=== PATIENT | male | born 1945 | race Caucasian/White ===

== ENCOUNTER 2016-12-26 09:40 | Outpatient (CLI) | payer OTHER, MEDICAID ==
[~2016-12-26 09:40] MED LIST: ALPR0.2583 PO; CARI350T27 PO; CEPH-568 PO; HYDR-1189 PO; HYDR-4100 PO; LOSA50TA3 PO; MET10 PO; MULT-514 PO; OMEP20CA10 PO
[2016-12-26 10:37] LABS: BASOPHILS % (AUTO) 0.7 % (0.0-2.0); BILIRUBIN,URINE NEGATIVE (NEGATIVE); BLOOD, URINE 2+ (NEGATIVE); CLARITY/URINE CLEAR (CLEAR); COLOR,URINE YELLOW (YELLOW); EOSINOPHILS # (AUTO) 0.2 K/uL (0.0-0.4); EOSINOPHILS % (AUTO) 3.4 % (0.0-4.0); GLUCOSE,URINE NEGATIVE (NEGATIVE); HEMATOCRIT 37.7 % (36-54); HEMOGLOBIN 12.8 g/dL (14.0-18.0); KETONES,URINE NEGATIVE (NEGATIVE); LEUKOCYTE ESTERASE ,URINE 1+ (NEGATIVE); LYMPHOCYTES # (AUTO) 1.5 K/uL (1.0-5.5); LYMPHOCYTES % (AUTO) 26.5 % (20.5-51.5); MEAN CORPUSCULAR HEMOGLOBIN 32 pg (27-31); MEAN CORPUSCULAR HGB CONC 34 % (32-36); MEAN CORPUSCULAR VOLUME 94 fL (79.0-98.0); MONOCYTES # (AUTO) 0.4 K/uL (0.0-1.0); MONOCYTES % (AUTO) 6.3 % (1.7-9.3); NEUTROPHILS # (AUTO) 3.6 K/uL (1.8-7.7); NEUTROPHILS % (AUTO) 63.1 % (40.0-70.0); NITRITE, URINE POSITIVE (NEGATIVE); PLATELET COUNT (AUTO) 333 K/uL (130-430); PROTEIN URINE NEGATIVE (NEGATIVE); RED BLOOD CELL COUNT(AUTO) 4.03 MIL/uL (4.2-6.2); RED CELL DISTRIBUTION WIDTH 13.3 % (9.0-15.0); UROBILINOGEN,URINE 0.2 (0.2-1.0); WHITE BLOOD COUNT (AUTO) 5.7 K/uL (4.8-10.8)
[2016-12-26 10:45] LABS: BACTERIA,URINE FEW /HPF (None Seen); YEAST,URINE None Seen /HPF (None Seen)
[2016-12-26 10:48] LABS: PROTHROMBIN TIME 10.7 SECS (9.5-12.5)
[2016-12-26 10:51] LABS: ALBUMIN 3.8 g/dL (3.4-4.8); CALCIUM 9.5 mg/dL (8.4-11.0); CREATININE 1.55 mg/dL (0.55-1.30); POTASSIUM 4.8 mmol/L (3.5-5.1); TOTAL BILIRUBIN 0.3 mg/dL (0.0-1.0); TOTAL PROTEIN, SERUM 8.3 g/dL (6.4-8.3)
== END 2016-12-26 19:36 | disposition home or self-care (01) ==
LOC: SRD 09:40
PROVIDERS: ATTEND Family Medicine
DX: Z01.818 Encounter for other preprocedural examination (principal); R05 Cough; M47.899 Other spondylosis, site unspecified; I70.0 Atherosclerosis of aorta
CPT/HCPCS: 36415; 71020-TC; 80053; 81000-TC; 85025; 85610-TC; 85730-TC; 87086; 87186-TC

== ENCOUNTER 2017-01-06 20:54 | Inpatient (IN) | payer OTHER ==
[~2017-01-06] VITALS: Ht 172.7 cm; Wt 76.2 kg
--- NOTE | 2017-01-06 20:54 | NUR ---
Patient to ER bed 2 to gown for evaluation. Side rails up. Report given to RADHIKA LOPEZ.
[2017-01-06 20:55] VITALS: BP_SYST 159
--- NOTE | 2017-01-06 20:56 | NUR ---
Patient alert and oriented x 4. Brought in via BLS with a complaint of severe, sharp mid lower abdominal pain which worsened today. Patient had bladder reconstruction last friday. Patient denies n/v/d. No fever, no acute distress or SOB at this time. O2 sat 94%. Patient has a urostomy bag on his right lower abdomen and 2 ROYCE drains on the left side of the abdomen.
[2017-01-06 21:15] LABS: BILIRUBIN,URINE NEGATIVE (NEGATIVE); BLOOD, URINE 2+ (NEGATIVE); CLARITY/URINE CLEAR (CLEAR); COLOR,URINE YELLOW (YELLOW); GLUCOSE,URINE NEGATIVE (NEGATIVE); KETONES,URINE NEGATIVE (NEGATIVE); LEUKOCYTE ESTERASE ,URINE 2+ (NEGATIVE); NITRITE, URINE NEGATIVE (NEGATIVE); PROTEIN URINE 1+ (NEGATIVE); UROBILINOGEN,URINE 0.2 (0.2-1.0)
[2017-01-06] MEDS ORDERED: MORPHINE 4 MG/ML INJ. SYRINGE IVP ONE ×2 (21:15→21:45)
[2017-01-06 21:22] LABS: BASOPHILS % (AUTO) 0.2 % (0.0-2.0); EOSINOPHILS # (AUTO) 0.1 K/uL (0.0-0.4); EOSINOPHILS % (AUTO) 0.7 % (0.0-4.0); HEMOGLOBIN 9.5 g/dL (14.0-18.0); LYMPHOCYTES # (AUTO) 0.8 K/uL (1.0-5.5); LYMPHOCYTES % (AUTO) 9.4 % (20.5-51.5); MEAN CORPUSCULAR HEMOGLOBIN 32 pg (27-31); MEAN CORPUSCULAR HGB CONC 34 % (32-36); MEAN CORPUSCULAR VOLUME 94 fL (79.0-98.0); MONOCYTES # (AUTO) 0.5 K/uL (0.0-1.0); MONOCYTES % (AUTO) 6.5 % (1.7-9.3); NEUTROPHILS # (AUTO) 6.8 K/uL (1.8-7.7); PLATELET COUNT (AUTO) 300 K/uL (130-430); RED BLOOD CELL COUNT(AUTO) 2.98 MIL/uL (4.2-6.2); RED CELL DISTRIBUTION WIDTH 13.7 % (9.0-15.0); WHITE BLOOD COUNT (AUTO) 8.2 K/uL (4.8-10.8)
[2017-01-06 21:24] LABS: BACTERIA,URINE FEW /HPF (None Seen)
[2017-01-06 21:25] LABS: MUCUS,URINE None Seen /LPF (None Seen)
[2017-01-06 21:33] LABS: CALCIUM 8.7 mg/dL (8.4-11.0); CREATININE 1.59 mg/dL (0.55-1.30); POTASSIUM 4.1 mmol/L (3.5-5.1)
[2017-01-06 21:36] LABS: INR 1.1 (0.80-1.20)
[2017-01-06 21:37] LABS: ALBUMIN 2.9 g/dL (3.4-4.8); TOTAL BILIRUBIN 0.3 mg/dL (0.0-1.0); TOTAL PROTEIN, SERUM 6.7 g/dL (6.4-8.3)
[2017-01-06 22:10] LABS: NEUTROPHILS % (AUTO) 83.2 % (40.0-70.0)
[2017-01-06] MEDS ORDERED: cefTRIAXone 1 GM IVPB PREMIX 50 ML IV ONE (22:15)
[2017-01-06] MEDS ORDERED: HYDROmorphone 1 MG INJ. 1 MG/ML AMPUL IVP ONE (22:45)
[2017-01-06] MEDS ORDERED: DOCU-144 PO (23:07)
[2017-01-06] MEDS ORDERED: OXYC5TAB84 PO (23:07)
[2017-01-06] MEDS ORDERED: NOR10 PO (23:08)
[2017-01-06] MEDS ORDERED: DOXY100T2 PO (23:09)
[2017-01-06] MEDS ORDERED: ESOM40CA PO (23:12)
[2017-01-06] MEDS ORDERED: ONDANSETRON HCL 4 MG/2 ML VIAL IVP PRN (23:15)
[2017-01-06] MEDS ORDERED: MORPHINE 2 MG/ML INJ. SYRINGE IVP PRN (23:15)
[2017-01-06] MEDS ORDERED: CEPH-568 PO (23:16)
--- NOTE | 2017-01-06 23:17 | NUR ---
Medication reconciliation completed with information provided in his record from home. Any prior medication reconciliation on file was reviewed and corrected.
--- NOTE | 2017-01-06 23:28 | NUR ---
Patient will be admitted under the care of Dr. Joel. Admitted to telemetry unit room 119B. Summary report printed. Report will be given at bedside. Patient was transported by 1 RN and 1 MT via gurney without any incident. No acute distress or sOB noted upon transfer. Patient was hooked up to a tele monitor.
--- NOTE | 2017-01-06 23:38 | NUR ---
CONSULTATION PAGED REASON FOR CONSULTATION:SMALL BOWEL OBSTRUCTION WAS CONSULT CALLED?Y PERSON WHO WAS NOTIFIED:DELORIS CONSULTING PHYSICIAN:JEN TAPIA COUNTERSINKER SPECIALTY:SURGEON COUNTERSINKER PHONE NUMBER:[phone]
--- NOTE | 2017-01-06 23:40 | NUR ---
ADMIT NOTE Received pt from ER to the floor with a diagnosis of SBO and UTI. Admission process initiated. patient oriented to pain management, safety and call light-teach back done.
--- NOTE | 2017-01-06 23:40 | NUR ---
initial nursing notes: Patient is awake. Patient has an ileal conduit connected to a drainage bag. Patient has steri-strips on his abdomen, open to air. Patient has a left and a right abdominal ROYCE drain. Patient has a left hand IV access.
[2017-01-06 23:56] VITALS: BP_SYST 158
--- NOTE | 2017-01-06 23:56 | NUR ---
PAGED PAGED KWAN VALDEZ AT [phone] SPOKE WITH DERIK.
[2017-01-07] MEDS: D5/0.45 NS 1,000 ML IV SCH ×2 (00:06→18:04)
[2017-01-07] MEDS: MORPHINE 4 MG/ML INJ. SYRINGE IVP PRN ×5 (00:23→17:57)
[2017-01-07] MEDS ORDERED: metroNIDAZOLE 500 mg/NS 200 ML IV ONE (00:30)
--- NOTE | 2017-01-07 00:41 | NUR ---
PAGED PAGED KWAN VALDEZ AT [phone] SPOKE WITH ROBBI.
--- NOTE | 2017-01-07 01:40 | NUR ---
nursing rounds: Patient received IV pain medication for abdominal pain. Pain medication was effective.
--- NOTE | 2017-01-07 02:50 | NUR ---
pt complain of gas pain. page dr. gonzalez to get order. waiting for call back.
--- NOTE | 2017-01-07 02:51 | NUR ---
dr. gonzalez call back give order to ELISSA.
[2017-01-07] MEDS ORDERED: MORPHINE 4 MG/ML INJ. SYRINGE IVP PRN (03:00)
--- NOTE | 2017-01-07 03:40 | NUR ---
nursing rounds: Patient received another dose of IV pain medication for abdominal pain. Pain medication was effective.
[2017-01-07 03:57] VITALS: BP_SYST 155
[2017-01-07] MEDS: metroNIDAZOLE 500 mg/NS 100 ML IV SCH ×2 (05:27→13:49)
--- NOTE | 2017-01-07 05:40 | NUR ---
nursing rounds: Patient calmly resting in bed. Call light within patient's reach.
[2017-01-07 06:06] LABS: CALCIUM 8.9 mg/dL (8.4-11.0); CREATININE 1.48 mg/dL (0.55-1.30); POTASSIUM 4.1 mmol/L (3.5-5.1); TOTAL BILIRUBIN 0.3 mg/dL (0.0-1.0); TOTAL PROTEIN, SERUM 6.9 g/dL (6.4-8.3)
[2017-01-07 06:12] LABS: HEMOGLOBIN 9.9 g/dL (14.0-18.0); WHITE BLOOD COUNT (AUTO) 10.1 K/uL (4.8-10.8)
[2017-01-07 06:22] LABS: HEMATOCRIT 29.3 % (36-54); MEAN CORPUSCULAR HEMOGLOBIN 31 pg (27-31); MEAN CORPUSCULAR HGB CONC 34 % (32-36); MEAN CORPUSCULAR VOLUME 93 fL (79.0-98.0); PLATELET COUNT (AUTO) 333 K/uL (130-430); RED BLOOD CELL COUNT(AUTO) 3.15 MIL/uL (4.2-6.2); RED CELL DISTRIBUTION WIDTH 13.4 % (9.0-15.0)
[2017-01-07 07:17] LABS: BAND % (MANUAL) 2 % (0-6); BASOPHILS % (MANUAL) 0 % (0-2); EOSINOPHILS % (MANUAL) 1 % (0-7); LYMPHOCYTES % (MANUAL) 6 % (20-46); MONOCYTES % (MANUAL) 2 % (0-11)
--- NOTE | 2017-01-07 07:49 | NUR ---
closing nursing notes: Patient is awake, alert and oriented X 4. Patient is in no acute respiratory distress. No episodes of fall and no injuries throughout the shift engineer. Provided nursing report to incoming morning shift nurse, Linh Monsivais RN, at patient's bedside.
[2017-01-07] MEDS: SIMETHICONE 80 MG TAB.CHEW PO PRN ×2 (08:13→20:09)
[2017-01-07 08:14] VITALS: BP_SYST 149
--- NOTE | 2017-01-07 08:14 | NUR ---
Initial notes: pt on bed awake, alert and oriented. stable. i.v. access in placed. discussed plan of care. safety measures in placed. call light within reach. report received at bedside.
--- NOTE | 2017-01-07 10:34 | NUR ---
rounds: pt sleeping. no distress noted.
[2017-01-07] MEDS ORDERED: CEPHALEXIN 500 MG CAPSULE PO SCH (11:30)
[2017-01-07] MEDS ORDERED: DOCUSATE SODIUM 100 MG CAPSULE PO PRN (11:30)
[2017-01-07] MEDS ORDERED: oxyCODONE HCL 5 MG TABLET PO PRN (11:30)
[2017-01-07 11:36] VITALS: BP_SYST 151
[2017-01-07] MEDS ORDERED: ONDANSETRON HCL 4 MG/2 ML VIAL IVP PRN (11:56)
[2017-01-07] MEDS ORDERED: PANTOPRAZOLE SODIUM 40 MG TAB PO SCH (12:00)
[2017-01-07 12:02] VITALS: BP_SYST 166
[2017-01-07] MEDS ORDERED: amLODIPine BESYLATE 10 MG TABLET PO ONE (12:15)
[2017-01-07] MEDS ORDERED: METHADONE HCL 10 MG TABLET PO ONE (12:15)
[2017-01-07] MEDS ORDERED: PANTOPRAZOLE SODIUM 40 MG TAB PO ONE (12:15)
--- NOTE | 2017-01-07 12:20 | NUR ---
DC PLANNING Order to transfer back to [facility], pt was dc'd yest. Spoke w Dr Joel states transfer dx Bowel Obstruction, needs Med/Surg bed via BLS ambulance. Pt had Ilial Conduit Reconstruction @ [facility]. Spoke w pt @ bedside, agreeable w clari, @ [facility] is José Miguel Campbell. Called & spoke rob Raya @ [facility] transfer center, ph [phone], states need to have Md to first & get acceptance from Dr Darling. Transferred call to Dr Darling's office & spoke w Siria in Urology gave her Dr Joel's cell #. Will have Md to then can call transfer center to work on transfer once accepted. Called & spoke rob Raya @ transfer center states to go ahead & fax pt info. Faxed pt info as requested fax [phone]. Addendum: 01/07/17 at 1232 by Graciela MYERS Ordered Radiology CD. Placed transportation packet in nurses station. Addendum: 01/07/17 at 1313 by Tianna Elizabeth RN Received call from Kun, charge nurse, that Dr Joel called & stated to transfer pt that did Md to Md & accepted. Called & spoke rob Raya @ [facility] transfer center, states that has not called yet saying he accepted that she paged Dr Darling, waiting to hear back from him. After he returns call will get a bed for pt & will call me. Has my direct extension & direct nsg station#. Updated pt's, Linh calderón. Addendum: 01/07/17 at 1600 by Graciela Link DP Patient assigned to room 6326 Urology Floor [address] [place] RADHIKA to report [phone]. Called [facility] [phone] spoke with Astrid LEAVITT transport sampler pickup soonest available 6pm to [facility] at [address] [address]. RADHIKA Melton made aware. CM will inform patient. Addendum: 01/07/17 at 1612 by Tianna Elizabeth RN Received call from Tisha @ [facility], Bed placement/transfer center ph [phone], pt accepted under Dr Darling to Urology floor 6W bed 6326, # for report [phone], can transfer anytime. Informed pt's nurse Emmy, states anytime for transfer ok. Informed malka Owens medical planner. Ambulance set up for 6PM. Informed pt, agreeable w transfer @ [facility] @ 6pm. Updated Emmy.
--- NOTE | 2017-01-07 12:35 | NUR ---
rounds: pt on bed in pain. due pain meds given. family at bedside.
--- NOTE | 2017-01-07 14:16 | NUR ---
rounds: pt on bed resting .no distress noted.
--- NOTE | 2017-01-07 15:11 | NUR ---
rounds: pt on bed. resting. stable.
[2017-01-07 15:23] VITALS: BP_SYST 135
[2017-01-07 15:38] VITALS: BP_SYST 135
--- NOTE | 2017-01-07 17:55 | NUR ---
CONSULTATION CANCELLED REASON FOR CONSULT: SMALL BOWEL OBSTRUCTION PERSON WHO WAS NOTIFIED: GUERRERO CONSULTING : SUNG REASON FOR CANCELING: PT IS DISCHARGING TO [facility].
--- NOTE | 2017-01-07 19:40 | NUR ---
ROUNDS PATIENT IN BED, AWAKE, ALERT, ORIENTED, NO PAIN AND DISCOMFORT AT THIS TIME. PATIENT READY FOR TRANSFER TO [facility], [place] ORDERED, JUST WAITING FOR AMBULANCE FOR TRANSPORT.TRANSITION OF CARE INSTRUCTIONS AND PACKET ALREADY DONE BY A.M. NURSE. ALL NEEDS ATTENDED TO. CALL LIGHT PLACED WITHIN REACH.
--- NOTE | 2017-01-07 19:49 | NUR ---
closing notes: pt on bed resting. stable. needs attended. safety measures in placed. waiting for ambulance to transfer at [facility]. report given to RADHIKA Chance of [facility] at 16:15. Pass to night auditor RNMisty.
--- NOTE | 2017-01-07 20:20 | NUR ---
NOTES PATIENT TRANSFERRED TO [facility] ORDERED VIA AMBULANCE WITH STABLE VITAL SIGNS. TRANSITION OF CARE PACKET DONE. ALL NEEDS MET AND ATTENDED TO.
[2017-01-07] MEDS ORDERED: DOXYCYCLINE HYCLATE 100 MG CAPSULE PO SCH (21:00)
[2017-01-07] MEDS ORDERED: amLODIPine BESYLATE 10 MG TABLET PO SCH (21:00)
[2017-01-07] MEDS ORDERED: cefTRIAXone 1 GM IVPB PREMIX 50 ML IV SCH (21:00)
[2017-01-08] MEDS ORDERED: METHADONE HCL 10 MG TABLET PO SCH (09:00)
== END 2017-01-07 20:20 | disposition short-term general hospital (02) | DRG 389 ==
LOC: SED 20:54 → SMU 23:10 → STU 23:30
PROVIDERS: ADMIT Internal Medicine; ATTEND Internal Medicine
DX: K56.60 Unspecified intestinal obstruction (principal); N39.0 Urinary tract infection, site not specified; E44.1 Mild protein-calorie malnutrition; D64.9 Anemia, unspecified; I12.9 Hypertensive chronic kidney disease with stage 1 through stage 4 chronic kidney disease, or unspecified chronic kidney disease; N18.9 Chronic kidney disease, unspecified; G89.4 Chronic pain syndrome; I10 Essential (primary) hypertension; Z68.25 Body mass index [BMI] 25.0-25.9, adult; Z85.51 Personal history of malignant neoplasm of bladder; Z90.6 Acquired absence of other parts of urinary tract; Z88.6 Allergy status to analgesic agent; Z79.899 Other long term (current) drug therapy; Z86.19 Personal history of other infectious and parasitic diseases
CPT/HCPCS: 36415; 80053; 81000-TC; 83690-TC; 85007; 85025; 85027; 85610-TC; 85730-TC; 87040-TC; 87086; 96374; 96375; 99285; J0696; J1170; J2270; J3490; J7042

== ENCOUNTER 2017-04-01 03:45 | Inpatient (IN) | payer OTHER ==
[~2017-04-01] VITALS: Ht 172.7 cm; Wt 71.7 kg
[2017-04-01 03:45] VITALS: BP_SYST 149
[~2017-04-01 03:45] MED LIST changes: -ALPR0.2583 PO; -CARI350T27 PO; +DOCU-144 PO; +DOXY100T2 PO; +ESOM40CA PO; -HYDR-1189 PO; -HYDR-4100 PO; -LOSA50TA3 PO; -MULT-514 PO; +NOR10 PO; -OMEP20CA10 PO; +OXYC5TAB84 PO
--- NOTE | 2017-04-01 03:45 | NUR ---
Patient to ER bed 5 to gown for evaluation. Side rails up. Report given to RADHIKA RENTERIA.
[2017-04-01] MEDS ORDERED: NACL 0.9% 1,000 ML IV ONE (03:49)
--- NOTE | 2017-04-01 03:50 | NUR ---
Pt came in for BLS for lower abdominal pain for 12 hours. Pt is tender to that area. Pt is nauseous with vomiting. Pt came in guarding abd. Will continue to monitor. No other injuries or complaints mentioned/noted.
--- NOTE | 2017-04-01 03:50 | NUR ---
ER Dr. Em at bedside examining patient.
[2017-04-01] MEDS ORDERED: MORPHINE 4 MG/ML INJ. SYRINGE IVP ONE (04:00)
[2017-04-01] MEDS ORDERED: DIPHENHYDRAMINE INJ 50 MG/ML VIAL IVP ONE (04:00)
[2017-04-01] MEDS ORDERED: ONDANSETRON HCL 4 MG/2 ML VIAL ONE (04:27)
[2017-04-01 04:29] LABS: BASOPHILS # (AUTO) 0.3 K/uL (0.0-0.2); BASOPHILS % (AUTO) 2.9 % (0.0-2.0); HEMATOCRIT 40.2 % (36-54); HEMOGLOBIN 13.1 g/dL (14.0-18.0); LYMPHOCYTES # (AUTO) 0.3 K/uL (1.0-5.5); LYMPHOCYTES % (AUTO) 2.9 % (20.5-51.5); MEAN CORPUSCULAR HEMOGLOBIN 30 pg (27-31); MEAN CORPUSCULAR HGB CONC 33 % (32-36); MEAN CORPUSCULAR VOLUME 93 fL (79.0-98.0); MONOCYTES # (AUTO) 0.3 K/uL (0.0-1.0); MONOCYTES % (AUTO) 2.4 % (1.7-9.3); NEUTROPHILS # (AUTO) 11.1 K/uL (1.8-7.7); PLATELET COUNT (AUTO) 342 K/uL (130-430); RED BLOOD CELL COUNT(AUTO) 4.32 MIL/uL (4.2-6.2); RED CELL DISTRIBUTION WIDTH 14.7 % (9.0-15.0)
[2017-04-01] MEDS ORDERED: ONDANSETRON HCL 4 MG/2 ML VIAL IVP ONE (04:30)
--- NOTE | 2017-04-01 04:45 | NUR ---
Patient reports pain 2/10. No adverse reactions noted. Will continue to monitor.
[2017-04-01 05:00] LABS: NEUTROPHILS % (AUTO) 91.8 % (40.0-70.0)
--- NOTE | 2017-04-01 05:00 | NUR ---
Pt is resting comfortably in bed. Will continue to monitor. No distress noted.
[2017-04-01 05:02] LABS: CALCIUM 10.3 mg/dL (8.4-11.0); CREATININE 1.89 mg/dL (0.55-1.30); POTASSIUM 3.6 mmol/L (3.5-5.1)
[2017-04-01 05:17] LABS: ALBUMIN 4.4 g/dL (3.4-4.8); TOTAL BILIRUBIN 0.3 mg/dL (0.0-1.0); TOTAL PROTEIN, SERUM 9.5 g/dL (6.4-8.3)
[2017-04-01 06:05] LABS: BILIRUBIN,URINE NEGATIVE (NEGATIVE); BLOOD, URINE 1+ (NEGATIVE); CLARITY/URINE CLEAR (CLEAR); COLOR,URINE YELLOW (YELLOW); GLUCOSE,URINE NEGATIVE (NEGATIVE); KETONES,URINE NEGATIVE (NEGATIVE); LEUKOCYTE ESTERASE ,URINE 3+ (NEGATIVE); NITRITE, URINE NEGATIVE (NEGATIVE); PH,URINE 6.5 (5.0-8.0); PROTEIN URINE TRACE (NEGATIVE); UROBILINOGEN,URINE 0.2 (0.2-1.0)
[2017-04-01 06:15] LABS: BACTERIA,URINE MANY /HPF (None Seen); RBC,URINE 0-3 /HPF (0-3)
[2017-04-01 06:16] LABS: HYALINE CASTS, URINE 0-10 /LPF (None Seen)
[2017-04-01 06:39] LABS: BILIRUBIN,URINE NEGATIVE (NEGATIVE); BLOOD, URINE 2+ (NEGATIVE); CLARITY/URINE CLEAR (CLEAR); COLOR,URINE YELLOW (YELLOW); GLUCOSE,URINE NEGATIVE (NEGATIVE); KETONES,URINE NEGATIVE (NEGATIVE); LEUKOCYTE ESTERASE ,URINE 3+ (NEGATIVE); NITRITE, URINE NEGATIVE (NEGATIVE); PH,URINE 5.5 (5.0-8.0); PROTEIN URINE 1+ (NEGATIVE); UROBILINOGEN,URINE 0.2 (0.2-1.0)
[2017-04-01 06:53] LABS: BACTERIA,URINE MODERATE /HPF (None Seen); HYALINE CASTS, URINE 0-10 /LPF (None Seen); MUCUS,URINE None Seen /LPF (None Seen)
[2017-04-01] MEDS ORDERED: HYDROmorphone 1 MG INJ. 1 MG/ML AMPUL IVP PRN (07:00)
[2017-04-01] MEDS ORDERED: cefTRIAXone 1 GM IVPB PREMIX 50 ML IV ONE (07:15)
--- NOTE | 2017-04-01 07:25 | NUR ---
Patient will be admitted to care of Dr. Bray Admitted to Med Surg unit. Will go to room 135. Belongings list completed. Summary report printed. Report will be given at bedside. Addendum: 04/01/17 at 0745 by ANALI No adverse reactions noted.
--- NOTE | 2017-04-01 07:27 | NUR ---
ADMISSION NOTE Received patient from ER via marcel, received report from MYRA GARRIDO. Patient admitted with diagnosis of SMALL BOWEL OBSTRUCTION. Patient oriented to hospital routine, call light, toileting and safety-patient verbalized understanding.
[2017-04-01 07:37] VITALS: BP_SYST 160
--- NOTE | 2017-04-01 07:44 | NUR ---
surgery consult called: for Dr. Li, regarding small bowell obstruction, ordered by Dr. Bray, called exchange.
[2017-04-01] MEDS: HYDROmorphone 2 MG/ML VIAL IVP PRN ×4 (08:04→20:31)
[2017-04-01] MEDS: D5NS 1,000 ML IV SCH ×2 (08:10→17:44)
--- NOTE | 2017-04-01 08:20 | NUR ---
note rec'd pt from admit RADHIKA BLUE. pt resting in bed comfortably at this time. pain ivp medication had just been given for severe abdominal pain. ivf's infusing well through left hand iv site. no needs noted at this time. no sob/resp distress noted. pt was reoriented to nursing routines and procedures. questions/concerns were answered at this time. call light within reach.
[2017-04-01] MEDS ORDERED: ONDANSETRON HCL 4 MG/2 ML VIAL IVP PRN (10:45)
[2017-04-01] MEDS ORDERED: ACETAMINOPHEN 325 MG TABLET PO PRN (10:45)
[2017-04-01] MEDS ORDERED: DOCUSATE SODIUM 100 MG CAPSULE PO PRN (10:45)
--- NOTE | 2017-04-01 12:00 | NUR ---
NOTE PT WAS SEEN AND ASSESSED BY DR TRIPATHI AT THIS TIME. ORDERS WRITTEN. PT RESTING IN BED AT THIS TIME. NO NEEDS NOTED. CALL LIGHT WITHIN REACH. ADMISSION ASSESSMENT WAS COMPLETED AT THIS TIME WELL.
[2017-04-01 12:15] VITALS: BP_SYST 146
--- NOTE | 2017-04-01 14:00 | NUR ---
NOTE DR DEUCE DORAN AND WAS INFORMED THAT PT REFUSED THE PLACEMENT OF NGT FOR GASTROGRAFIN AND PT UNABLE TO DRINK CONTRAST. PT ALSO STATES HE WILL NOT BE ABLE TO STAY STILL FOR THE STUDY. PT HAD JUST BEEN GIVEN PAIN MEDICATION IVP 25 MINUTES AGO.
--- NOTE | 2017-04-01 15:25 | NUR ---
NOTE PT WAS TRANSFERRED TO RM 120B FROM 134B AT 1430. PT TOLERATED TRANSFER VIA BED WELL AT THIS TIME. PT RESTING IN BED. IVF'S INFUSING WELL THROUGH LEFT HAND IV SITE. CALL LIGHT WITHIN REACH.
[2017-04-01 16:49] VITALS: BP_SYST 144
--- NOTE | 2017-04-01 17:00 | NUR ---
NOTE PT TOOK HIS IV POLE AND AMBULATED IN THE ROOM AND OUT INTO HALLWAY. PT AMBULATED WITH STEADY GAIT AT THIS TIME. PT NOW RETURNED TO ROOM AND RESTING IN BED. NO SOB/RESP DISTRESS NOTED AT THIS TIME. CALL LIGHT WITHIN REACH.
--- NOTE | 2017-04-01 18:30 | NUR ---
NOTE PT RESTING IN BED . NO SOB/RESP DISTRESS NOTED. PAIN TOLERABLE AT THIS TIME. IVF'S INFUSING WELL THROUGH LEFT IV SITE. NO NEEDS NOTED. PT WAS CHECKED ON Q1' AND PRN FOR NEEDS AND CARE. CALL LIGHT WITHIN REACH.
[2017-04-01 20:00] VITALS: BP_SYST 140
--- NOTE | 2017-04-01 20:00 | NUR ---
Initial Notes Received patient laying in bed, awake, alert, oriented. Patient denies any acute distress at this time. Medicated patient for pain per MD orders. Vital signs stable. Breathing is even and unlabored on room air. IV site patent/clean/dry. Urostomy bag and right nephrostomy bag noted, draining yellow urine. Educated patient on use of call light for assistance and fall precautions, patient verbalized understanding. Call light in hand, will continue to monitor.
[2017-04-01] MEDS: amLODIPine BESYLATE 10 MG TABLET PO SCH (20:30)
--- NOTE | 2017-04-01 22:18 | NUR ---
Rounds Patient resting in bed with eyes closed, easily aroused. Patient denies any acute distress, pain, or needs at this time. Breathing is even and unlabored. IV site patent/clean/dry. Call light in hand, will continue to monitor.
--- NOTE | 2017-04-02 | NUR ---
Rounds Patient resting in bed with eyes closed, easily aroused. Patient denies any acute distress or pain at this time. Breathing is even and unlabored. IV site patent/clean/dry. Needs addressed. Will continue to monitor.
[2017-04-02 00:13] VITALS: BP_SYST 140
[2017-04-02] MEDS: HYDROmorphone 2 MG/ML VIAL IVP PRN ×2 (02:14→08:50)
--- NOTE | 2017-04-02 02:15 | NUR ---
Rounds Patient resting in bed, awake. Patient denies any acute distress. Medicated patient for pain per MD orders. Breathing is even and unlabored. IV site patent/clean/dry. Call light in hand, fall precautions in place. Will continue to monitor.
--- NOTE | 2017-04-02 04:00 | NUR ---
Rounds Patient resting in bed, easily aroused. Patient denies any acute distress or pain at this time. Breathing is even and unlabored. IV site patent/clean/dry. Needs addressed. Call light in hand, will continue to monitor.
[2017-04-02 04:31] VITALS: BP_SYST 140
[2017-04-02] MEDS: D5NS 1,000 ML IV SCH ×2 (04:42→15:59)
--- NOTE | 2017-04-02 06:41 | NUR ---
Closing Notes Patient resting in bed with eyes closed, easily aroused. Patient denies any acute distress or pain at this time. Breathing is even and unlabored. IV site patent/clean/dry, no S/S infection/infiltration noted. Urostomy and neprostomy draining yellow urine, bags intact without leakage. Needs addressed throughout shift. Call light in hand, fall precautions in place. Will continue to monitor for changes and safety, and endorse all patient care/needs to oncoming nurse.
[2017-04-02 08:12] VITALS: BP_SYST 137
--- NOTE | 2017-04-02 08:13 | NUR ---
INITIAL NOTE PT LAYING IN BED, RESTING, EASY TO AROUSE, NO S/S OF ACUTE DISTRESSNOTED, COMPLAINS OF PAIN 05/01 WILL FOLLOW UP WITH PAIN MEDICATION, IVF INFUSING TO LEFT WIRST AT ORDERED NO S/S OF INFILTRATION NOTED, PLAN OF CARE DISCUSSED, PT VERBALIZED UNDERSTANDING, SAFETY MEASURES IN PLACE, CALL LIGHT WITHIN REACH, WILL FOLLOW UP
[2017-04-02] MEDS ORDERED: NON-FORMULARY MEDICATION (Esomeprazole Mag Trihydrate (Nexium) 40 MG) PO SCH (09:00)
[2017-04-02] MEDS: amLODIPine BESYLATE 10 MG TABLET PO SCH ×2 (09:00→21:47)
[2017-04-02] MEDS: PANTOPRAZOLE SODIUM 40 MG TAB PO SCH (09:00)
--- NOTE | 2017-04-02 10:00 | NUR ---
PATIENT UP, GETTING CLEANED UP, STEADY GAIT, NOTED, PT STATES HE HAS NO NEEDS AT THIS TIME, WILL CONTINUE TO MONITOR
--- NOTE | 2017-04-02 10:48 | NUR ---
PATIENT PICKED UP FOR RADIOLOGY DIAGNOSTIC PROCEDURE, STABLE, VIA WHEEL CHAIR, NO S/S OF ACUTE DISTRESS OR PAIN AT THIS TIME, WILL AWAIT RETURN
[2017-04-02 12:00] VITALS: BP_SYST 139
--- NOTE | 2017-04-02 12:07 | NUR ---
BREAKTHROUGH PAIN IN RADIOLOGY RADIOLOGY CALLED, STATES PATIENT IS IN PAIN ABLE TO TOLERATE ORAL CONTRAST, PT REQUEST SCHEDULED METHADONE AND IV PAIN MEDICATION, WENT TO RADIOLOGY TO ADMINISTER MEDICATION SO THAT PATIENT MAY TOLERATE AND FINISH PROCEDURE, CHARGE NURSE YOSSI AWARE AND AGREED. WILL FOLLOW UP
[2017-04-02] MEDS: METHADONE HCL 10 MG TABLET PO SCH (12:10)
--- NOTE | 2017-04-02 12:39 | NUR ---
PATIENT RETURNED FROM PROCEDURE, STABLE, NO S/S OF DISTRESS OR PAIN AT THIS TIME, SAFETY MEASURES IN PLACE, CALL LIGHT WITHIN REACH, WILL CONTINUE TO MONITOR CLOSELY
--- NOTE | 2017-04-02 14:21 | NUR ---
DR MERAZ MAKING ROUNDS
[2017-04-02 16:00] VITALS: BP_SYST 126; BP_SYST 136
--- NOTE | 2017-04-02 16:04 | NUR ---
ACCOMPANIED PATIENT ON TWO ROUNDS AROUND MS/TELE UNIT, STEADY GAIT NOTED, NO COMPLAINT OF PAIN, NO S/S OF ACUTE DISTRESS, VSS, LEFT PATIENT SITTING IN BEDSIDE CHAIR, CALL LIGHT WITHIN REACH, WILL CONTINUE TO MONITOR CLOSELY
--- NOTE | 2017-04-02 19:13 | NUR ---
CLOSING NOTE PT SITTING IN BEDSIDE CHAIR, RESTING, EASY TO AROUSE, NO S/S OF ACUTE DISTRESS OR PAIN AT THIS TIME, IV FLUIDS IN FUSING TO LEFT WRIST, SITE PATENT AND INTACT, ALL NEEDS ATTENDED TO THROUGHOUT SHIFT, SAFETY MEASURES MAINTAINED, WILL GIVE REPORT TO FOLLOWING SHIFT
[2017-04-02 20:00] VITALS: BP_SYST 120
--- NOTE | 2017-04-02 20:00 | NUR ---
NOTES; SEEN PT SITTING UP IN CHAIR. NO ACUTE DISTRESS NOTED. VITAL SIGNS STABLE, AFEBRILE. ABDOMEN SOFT NONDISTENDED WITH ACTIVE BOWEL SOUNDS. RT UROSTOMY AND RT NEPHROSTOMY WITH BAGS, NOTED SMALL URIN OUT PUT IN EACH BAG. ORDERED IVF INFUSING WELL ON THE LEFT WRIST, PATENT. NO SIGNS OF INFECTION NOTED ON IV SITE. PT DENIES ANY PAIN AT THIS TIME. CALL LIGHT WITHIN REACH.
--- NOTE | 2017-04-02 21:19 | NUR ---
NOTES; PT C/O OF INSOMNIA. PT IS NPO AT THIS TIME AND SUCH CAN NOT TAKE PO MEDS. DR. MERAZ CALLED AND INFORMED IF IT WAS OK TO GIVE PT SCHEDULED MEDICATION WHILE NPO AND PT C/O INSOMNIA. NPO EXCEPT MEDS AND RESTORIL 15MG PO EVERY HS FOR INSOMNIA.
[2017-04-02] MEDS: TEMAZEPAM 15 MG CAPSULE PO PRN (21:46)
--- NOTE | 2017-04-02 21:48 | NUR ---
NOTES; RESTORIL 15MG PO FOR INSOMNIA ADMINISTERED ALONG WITH SCHEDULED PO MEDICATION. PT TOLERATED MEDS WELL.
--- NOTE | 2017-04-02 22:50 | NUR ---
NOTES; AMBULATED TO THE BATHROOM. PER PT, HE HAD X1 LOOSE BM. AMBULATED BACK TO BED WITH GAIT STEADY. SAFETY MEASURES IN PROGRESS.
--- NOTE | 2017-04-02 23:20 | NUR ---
NOTES; RT NEPHROSTOMY BAG AND RT UROSTOMY BAG EMPTIED. WITH 100cc OF OUT PUT IN EACH BAG.
[2017-04-03] VITALS (7 sets, daily range): BP systolic 109–128
[2017-04-03] MEDS: D5NS 1,000 ML IV SCH ×3 (01:18→22:01)
--- NOTE | 2017-04-03 01:30 | NUR ---
NOTES; PT IS RESTING QUIETLY, EASILY AROUSED. NO ACUTE DISTRESS NOTED. CALL LIGHT AND BEDSIDE TABLE WITHIN REACH. SAFETY MEASURES IN PROGRESS.
--- NOTE | 2017-04-03 03:00 | NUR ---
NOTES; PT IS RESTING QUIETLY, EASILY AROUSED. NO ACUTE DISTRESS NOTED. CALL LIGHT AND BEDSIDE TABLE WITHIN REACH. SAFETY MEASURES IN PROGRESS.
--- NOTE | 2017-04-03 04:49 | NUR ---
NOTES; PT APPEARED TO BE SLEEPING,EYES CLOSED. RESPIRATION EVEN AND UNLABORED. NO ACUTE DISTRESS NOTED. VITAL SIGNS STABLE. CALL LIGHT WITHIN REACH. SAFETY MEASURES IN PROGRESS.
--- NOTE | 2017-04-03 06:45 | NUR ---
NOTE PT IS STANDING AT BEDSIDE, NO S/S OF ACUTE DISTRESS OR PAIN NOTED. ORDERED IV FLUIDS IN FUSING WELL TO LEFT WRIST, SITE, PATENT AND INTACT, ALL NEEDS ATTENDED TO THROUGHOUT SHIFT, SAFETY MEASURES MAINTAINED. CALL LIGHT AND BEDSIDE TABLE WITHIN REACH.
--- NOTE | 2017-04-03 08:00 | NUR ---
AM Initial Notes Pt aaox4 with no complaints of pain or discomfort. No sob, difficulty breathing or distress noted. Pt has a right urostomy and right nephrostomy. Educated about fall and safety precautions. Encouraged to call for assistance. Call light within reach. Will monitor. -
[2017-04-03] MEDS: PANTOPRAZOLE SODIUM 40 MG TAB PO SCH (09:05)
[2017-04-03] MEDS: amLODIPine BESYLATE 10 MG TABLET PO SCH ×2 (09:06→22:00)
[2017-04-03] MEDS: METHADONE HCL 10 MG TABLET PO SCH (09:06)
--- NOTE | 2017-04-03 11:00 | NUR ---
Rounds Pt awake sitting up in bed. No complaints of pain or discomfort. No distress noted. Kept comfortable. Encouraged to call for assistance. Call light within reach. Will monitor.
[2017-04-03 11:29] LABS: BASOPHILS % (AUTO) 0.6 % (0.0-2.0); EOSINOPHILS # (AUTO) 0.1 K/uL (0.0-0.4); EOSINOPHILS % (AUTO) 2.6 % (0.0-4.0); HEMATOCRIT 29.4 % (36-54); HEMOGLOBIN 9.7 g/dL (14.0-18.0); LYMPHOCYTES # (AUTO) 0.9 K/uL (1.0-5.5); LYMPHOCYTES % (AUTO) 24.4 % (20.5-51.5); MEAN CORPUSCULAR HEMOGLOBIN 32 pg (27-31); MEAN CORPUSCULAR HGB CONC 33 % (32-36); MEAN CORPUSCULAR VOLUME 96 fL (79.0-98.0); MONOCYTES # (AUTO) 0.5 K/uL (0.0-1.0); MONOCYTES % (AUTO) 13.8 % (1.7-9.3); NEUTROPHILS % (AUTO) 58.6 % (40.0-70.0); PLATELET COUNT (AUTO) 252 K/uL (130-430); RED BLOOD CELL COUNT(AUTO) 3.07 MIL/uL (4.2-6.2); RED CELL DISTRIBUTION WIDTH 15.9 % (9.0-15.0); WHITE BLOOD COUNT (AUTO) 3.5 K/uL (4.8-10.8)
[2017-04-03 11:43] LABS: CALCIUM 8.5 mg/dL (8.4-11.0); CREATININE 1.24 mg/dL (0.55-1.30); POTASSIUM 3.6 mmol/L (3.5-5.1)
[2017-04-03 11:50] LABS: TOTAL BILIRUBIN 0.2 mg/dL (0.0-1.0); TOTAL PROTEIN, SERUM 6.7 g/dL (6.4-8.3)
--- NOTE | 2017-04-03 14:35 | NUR ---
Rounds Pt awake ambulating in hallway. No significant changes noted. No complaints of pain or discomfort. Will continue to monitor.
--- NOTE | 2017-04-03 18:30 | NUR ---
Closing notes Pt awake sitting up in bed. No complaints of pain or discomfort. No distress noted. Encouraged to call for assistance. Will endorse care to incoming nurse.
--- NOTE | 2017-04-03 19:50 | NUR ---
NOTES; SEEN PT SITTING UP ON THE SIDE OF BED. NO ACUTE DISTRESS NOTED. VITAL SIGNS STABLE, AFEBRILE. ABDOMEN SOFT NONDISTENDED WITH ACTIVE BOWEL SOUNDS. RT UROSTOMY AND RT NEPHROSTOMY WITH BAGS, NOTED SMALL URIN OUT PUT IN EACH BAG. RECEIVED PT WITH IV OCCLUDED. WILL RESTART NEW IV LINE. PT C/O 05/01, RN COVERING TO BE MEDICATED ONCE IV IS STARTED. SAFETY MEASURES IN PROGRESS. CALL LIGHT WITHIN REACH.
--- NOTE | 2017-04-03 20:15 | NUR ---
NOTES; RESTARTED NEW IV ON THE LEFT FOREARM, GAUGE 22. ORDERED IVF RESUMED.
[2017-04-03] MEDS: HYDROmorphone 2 MG/ML VIAL IVP PRN (20:42)
--- NOTE | 2017-04-03 20:42 | NUR ---
PAIN Patient is awake with complaints of abdominal pain "8/10"; administered Dilaudid 2mg IVP as ordered PRN for severe pain. Educated patient regarding medication and potential side effects. See EMAR. Patient verbalized understanding. Safety precautions are in place. Room near nurses station. DIANA Jones also made aware. Will continue to monitor.
[2017-04-03] MEDS: TEMAZEPAM 15 MG CAPSULE PO PRN (21:59)
--- NOTE | 2017-04-03 22:05 | NUR ---
NAUSEA Patient is nauseated and vomiting. Zofran IVP was given as ordered PRN for nausea/vomiting. Educated patient regarding medication and potential side effects. See EMAR. Safety precautions are in place. Primary nurse at bedside including DIRECTOR OF SEARCH ENGINE MARKETING. Patient requested bedside commode which was provided by DIRECTOR OF SEARCH ENGINE MARKETING. Room near nurses station. Will continue to monitor.
--- NOTE | 2017-04-03 22:11 | NUR ---
NOTES; RESTORIL 15MG PO FOR INSOMNIA ADMINISTERED ALONG WITH SCHEDULED PO MEDICATION. PT TOLERATED MEDS WELL.
--- NOTE | 2017-04-04 | NUR ---
NOTES; PT IS RESTING QUIETLY, EASILY AROUSED. NO ACUTE DISTRESS NOTED. RESPIRATION EVEN AND NONLABORED. CALL LIGHT AND BEDSIDE TABLE WITHIN REACH. SAFETY MEASURES IN PROGRESS.
--- NOTE | 2017-04-04 02:15 | NUR ---
NOTES; PT IS RESTING QUIETLY, EASILY AROUSED. NO ACUTE DISTRESS NOTED. RESPIRATION EVEN AND NONLABORED. CALL LIGHT AND BEDSIDE TABLE WITHIN REACH. SAFETY MEASURES IN PROGRESS.
--- NOTE | 2017-04-04 04:30 | NUR ---
NOTES; PT IS RESTING QUIETLY, EASILY AROUSED. NO ACUTE DISTRESS NOTED. RESPIRATION EVEN AND NONLABORED. CALL LIGHT AND BEDSIDE TABLE WITHIN REACH. SAFETY MEASURES IN PROGRESS.
[2017-04-04 06:18] VITALS: BP_SYST 139
[2017-04-04] MEDS: D5NS 1,000 ML IV SCH (06:24)
--- NOTE | 2017-04-04 06:59 | NUR ---
NOTE PT IS RESTING IN BED, NO S/S OF ACUTE DISTRESS OR PAIN NOTED. EASILY AROUSED. ORDERED IV FLUIDS IN FUSING WELL TO LEFT FOREARM, IV SITE PATENT AND INTACT, ALL NEEDS ATTENDED TO THROUGHOUT SHIFT. SAFETY MEASURES MAINTAINED. CALL LIGHT AND BEDSIDE TABLE WITHIN REACH.
--- NOTE | 2017-04-04 08:00 | NUR ---
AM Initial Notes Pt aaox4 with no complaints of pain or discomfort. No sob, difficulty breathing or distress noted. Right urostomy and right nephrostomy noted. Encouraged patient to call nurse when emptying urostomy and nephrostomy tubes. Re-educated about fall and safety precautions. Encouraged to call for assistance. Call light within reach. Will monitor.
[2017-04-04 08:22] VITALS: BP_SYST 124
[2017-04-04] MEDS: PANTOPRAZOLE SODIUM 40 MG TAB PO SCH (09:18)
[2017-04-04] MEDS: METHADONE HCL 10 MG TABLET PO SCH (09:19)
[2017-04-04] MEDS: amLODIPine BESYLATE 10 MG TABLET PO SCH (09:19)
--- NOTE | 2017-04-04 09:19 | NUR ---
Nutrition Update Juan Diego Scale 18 noted. Pt admitted for SBO. Diet: clear liquid BMI: 24 kg/m2 RD to follow per nutrition care standards.
--- NOTE | 2017-04-04 11:00 | NUR ---
Rounds Pt awake resting in bed. No complaints of pain or discomfort. No distress noted. Will continue to monitor.
[2017-04-04] MEDS ORDERED: cefTRIAXone 1 GM IVPB PREMIX 50 ML IV SCH (12:00)
[2017-04-04 12:09] VITALS: BP_SYST 111
[2017-04-04 12:24] LABS: CALCIUM 8.2 mg/dL (8.4-11.0); CREATININE 1.41 mg/dL (0.55-1.30); POTASSIUM 3.4 mmol/L (3.5-5.1)
--- NOTE | 2017-04-04 13:30 | NUR ---
Spoke to DR. Li , informed regarding patient progress , passing gas,had 6 bowel movement last night , advance diet tolerating well w/o abdominal pain and said ok to discharge home today.
--- NOTE | 2017-04-04 15:00 | NUR ---
Rounds Pt ambulating on hallway. No complaints of pain or discomfort. No distress noted. Will monitor.
--- NOTE | 2017-04-04 15:41 | NUR ---
ATTENDING , DR MERAZ CALLED RE: MED RECONCILLIATION. SPOKE TO KANDICE
[2017-04-04] MEDS ORDERED: POTASSIUM CHLORIDE 20 MEQ TAB.PRT.SR PO ONE (16:15)
[2017-04-04 16:18] VITALS: BP_SYST 104
[2017-04-04 17:34] VITALS: BP_SYST 104
--- NOTE | 2017-04-04 18:25 | NUR ---
Discharge Discharge patient with friend. Transitional care instructions and handout explained and given. Verbalized understanding. D/C IV and dressing applied. Vital signs stable. Pt left floor via wheelchair for private vehicle. No distress noted.
--- NOTE | 2017-04-07 16:15 | NUR ---
Discharge Follow Up Phone Call: CAKE TESTER called and spoke with pt ([phone]). Pt states that he is doing well; there are no questions regarding discharge or medication instructions; pt has a follow up appointment scheduled with PCP, Dr. Howard, on 04/08/17. Pt did not express any other needs or concerns and denied the need for additional follow up at this time. No further follow up phone calls required at this time.
== END 2017-04-04 18:25 | disposition home or self-care (01) | DRG 388 ==
LOC: SED 03:45 → SMU 06:51
PROVIDERS: ADMIT Internal Medicine Hospice and Palliative Medicine; ATTEND Internal Medicine Hospice and Palliative Medicine
DX: K56.60 Unspecified intestinal obstruction (principal); N17.0 Acute kidney failure with tubular necrosis; F11.20 Opioid dependence, uncomplicated; N39.0 Urinary tract infection, site not specified; G89.4 Chronic pain syndrome; I10 Essential (primary) hypertension; M48.00 Spinal stenosis, site unspecified; K59.00 Constipation, unspecified; Z90.6 Acquired absence of other parts of urinary tract; Z85.51 Personal history of malignant neoplasm of bladder; Z79.899 Other long term (current) drug therapy; Z88.6 Allergy status to analgesic agent
CPT/HCPCS: 36415; 74250-TC; 76770; 80048; 80053; 81000-TC; 83605; 85025; 87040-TC; 87081; 87086; 87186-TC; 96361; 96365; 96375; 99285; J0696; J1170; J1200; J2270; J2405; J7030; J7042

== ENCOUNTER 2017-06-18 19:22 | Inpatient (IN) | payer OTHER ==
[~2017-06-18] VITALS: Ht 172.7 cm; Wt 66.7 kg
[~2017-06-18 19:22] MED LIST changes: -CEPH-568 PO; -DOXY100T2 PO
[2017-06-18 19:25] VITALS: BP_SYST 137
[2017-06-18] MEDS ORDERED: ONDANSETRON 4 MG ODT TAB PO ONE (19:45)
[2017-06-18] MEDS ORDERED: NS 500 ML IV ONE (19:45)
[2017-06-18] MEDS ORDERED: METOCLOPRAMIDE HCL 10 MG/2 ML VIAL IVP ONE (19:45)
[2017-06-18 20:09] LABS: BASOPHILS % (AUTO) 0.6 % (0.0-2.0); EOSINOPHILS % (AUTO) 0.4 % (0.0-4.0); HEMATOCRIT 33.8 % (36-54); HEMOGLOBIN 10.8 g/dL (14.0-18.0); LYMPHOCYTES # (AUTO) 1.4 K/uL (1.0-5.5); LYMPHOCYTES % (AUTO) 24.5 % (20.5-51.5); MEAN CORPUSCULAR HEMOGLOBIN 30 pg (27-31); MEAN CORPUSCULAR HGB CONC 32 % (32-36); MEAN CORPUSCULAR VOLUME 95 fL (79.0-98.0); MONOCYTES # (AUTO) 0.3 K/uL (0.0-1.0); MONOCYTES % (AUTO) 4.5 % (1.7-9.3); NEUTROPHILS # (AUTO) 3.9 K/uL (1.8-7.7); PLATELET COUNT (AUTO) 237 K/uL (130-430); RED BLOOD CELL COUNT(AUTO) 3.57 MIL/uL (4.2-6.2); RED CELL DISTRIBUTION WIDTH 15.4 % (9.0-15.0); WHITE BLOOD COUNT (AUTO) 5.6 K/uL (4.8-10.8)
[2017-06-18 20:19] LABS: CALCIUM 9.8 mg/dL (8.4-11.0); CREATININE 1.55 mg/dL (0.55-1.30); POTASSIUM 4.5 mmol/L (3.5-5.1)
[2017-06-18 20:23] LABS: ALBUMIN 3.7 g/dL (3.4-4.8); TOTAL BILIRUBIN 0.2 mg/dL (0.0-1.0)
[2017-06-18] MEDS ORDERED: MORPHINE 4 MG/ML INJ. SYRINGE IVP ONE ×2 (20:30→22:00)
[2017-06-18 21:00] LABS: BILIRUBIN,URINE NEGATIVE (NEGATIVE); BLOOD, URINE NEGATIVE (NEGATIVE); CLARITY/URINE SL CLOUDY (CLEAR); COLOR,URINE YELLOW (YELLOW); GLUCOSE,URINE NEGATIVE (NEGATIVE); KETONES,URINE NEGATIVE (NEGATIVE); LEUKOCYTE ESTERASE ,URINE 2+ (NEGATIVE); NITRITE, URINE NEGATIVE (NEGATIVE); PH,URINE >=9.0 (5.0-8.0); PROTEIN URINE 2+ (NEGATIVE); UROBILINOGEN,URINE 0.2 (0.2-1.0)
[2017-06-18 21:17] LABS: BACTERIA,URINE MANY /HPF (None Seen); RBC,URINE 0-3 /HPF (0-3)
[2017-06-18 21:18] LABS: TRIPLE PHOSPHATE CRYSTAL,UR 3+ /HPF (None Seen)
[2017-06-18] MEDS ORDERED: NACL 0.9% 1,000 ML IV ONE (22:00)
[2017-06-18] MEDS ORDERED: CIPROFLOXACIN LACT 400 MG/D5W 200 ML IV ONE (22:15)
[2017-06-18] MEDS ORDERED: metroNIDAZOLE 500 mg/NS 100 ML IV ONE (23:15)
[2017-06-18] MEDS ORDERED: ACETAMINOPHEN 650 MG SUPP.RECT RC PRN (23:15)
[2017-06-18] MEDS ORDERED: ONDANSETRON HCL 4 MG/2 ML VIAL IVP PRN (23:15)
[2017-06-19] VITALS (8 sets, daily range): BP systolic 144–163
[2017-06-19] MEDS: D5/0.45 NS 1,000 ML IV SCH ×2 (00:59→09:25)
[2017-06-19] MEDS: HYDROmorphone 2 MG/ML VIAL IVP PRN ×7 (01:16→20:47)
[2017-06-19 06:37] LABS: BASOPHILS % (AUTO) 0.1 % (0.0-2.0); EOSINOPHILS % (AUTO) 0.1 % (0.0-4.0); HEMOGLOBIN 11.2 g/dL (14.0-18.0); LYMPHOCYTES # (AUTO) 0.8 K/uL (1.0-5.5); MEAN CORPUSCULAR HEMOGLOBIN 31 pg (27-31); MEAN CORPUSCULAR HGB CONC 33 % (32-36); MEAN CORPUSCULAR VOLUME 95 fL (79.0-98.0); MONOCYTES # (AUTO) 0.4 K/uL (0.0-1.0); MONOCYTES % (AUTO) 5.1 % (1.7-9.3); NEUTROPHILS # (AUTO) 6.1 K/uL (1.8-7.7); NEUTROPHILS % (AUTO) 83.7 % (40.0-70.0); PLATELET COUNT (AUTO) 212 K/uL (130-430); RED BLOOD CELL COUNT(AUTO) 3.59 MIL/uL (4.2-6.2); RED CELL DISTRIBUTION WIDTH 15.8 % (9.0-15.0); WHITE BLOOD COUNT (AUTO) 7.3 K/uL (4.8-10.8)
[2017-06-19 06:41] LABS: INR 1.1 (0.80-1.20); PROTHROMBIN TIME 11.5 SECS (9.5-12.5)
[2017-06-19 06:44] LABS: ALBUMIN 3.4 g/dL (3.4-4.8); CALCIUM 9.4 mg/dL (8.4-11.0); CREATININE 1.15 mg/dL (0.55-1.30); POTASSIUM 4.3 mmol/L (3.5-5.1); TOTAL BILIRUBIN 0.3 mg/dL (0.0-1.0)
[2017-06-19] MEDS: PANTOPRAZOLE SODIUM 40 MG/VIAL (PROTONIX) IVP SCH (09:16)
[2017-06-19] MEDS ORDERED: INSULIN ASPART 100 UNITS/ML, 10 ML VIAL (NovoLOG) SUBCUT PRN (11:30)
[2017-06-19] MEDS: ALBUTEROL SULFATE 0.083% 2.5 MG/3 ML VIAL.NEB INH SCH ×3 (11:45→23:00)
[2017-06-19] MEDS ORDERED: GASTROGRAFIN 120 ML ONE (13:38)
[2017-06-19] MEDS: LEVOFLOXACIN 250 MG/D5W 50 ML IV SCH (17:27)
[2017-06-19] MEDS: ENALAPRILAT DIHYDRATE 1.25 MG/ML VIAL IVP PRN (20:51)
[2017-06-20] MEDS: D5/0.45 NS 1,000 ML IV SCH ×2 (00:16→15:13)
[2017-06-20] MEDS: HYDROmorphone 2 MG/ML VIAL IVP PRN ×3 (00:16→06:22)
[2017-06-20 00:50] VITALS: BP_SYST 146
[2017-06-20 04:10] VITALS: BP_SYST 159
[2017-06-20 06:32] LABS: BASOPHILS % (AUTO) 0.2 % (0.0-2.0); HEMATOCRIT 37.7 % (36-54); HEMOGLOBIN 12.5 g/dL (14.0-18.0); LYMPHOCYTES # (AUTO) 0.6 K/uL (1.0-5.5); LYMPHOCYTES % (AUTO) 6.6 % (20.5-51.5); MEAN CORPUSCULAR HEMOGLOBIN 32 pg (27-31); MEAN CORPUSCULAR HGB CONC 33 % (32-36); MEAN CORPUSCULAR VOLUME 95 fL (79.0-98.0); MONOCYTES # (AUTO) 0.4 K/uL (0.0-1.0); MONOCYTES % (AUTO) 3.8 % (1.7-9.3); NEUTROPHILS # (AUTO) 8.8 K/uL (1.8-7.7); NEUTROPHILS % (AUTO) 89.4 % (40.0-70.0); PLATELET COUNT (AUTO) 262 K/uL (130-430); RED BLOOD CELL COUNT(AUTO) 3.97 MIL/uL (4.2-6.2); WHITE BLOOD COUNT (AUTO) 9.8 K/uL (4.8-10.8)
[2017-06-20 06:42] LABS: ALBUMIN 3.6 g/dL (3.4-4.8); CALCIUM 9.9 mg/dL (8.4-11.0); CREATININE 1.81 mg/dL (0.55-1.30); POTASSIUM 4.8 mmol/L (3.5-5.1); TOTAL BILIRUBIN 0.3 mg/dL (0.0-1.0)
[2017-06-20] MEDS: ALBUTEROL SULFATE 0.083% 2.5 MG/3 ML VIAL.NEB INH SCH ×3 (07:00→23:00)
[2017-06-20] MEDS: PANTOPRAZOLE SODIUM 40 MG/VIAL (PROTONIX) IVP SCH (07:33)
[2017-06-20 08:24] VITALS: BP_SYST 138
[2017-06-20] MEDS ORDERED: oxyCODONE HCL 5 MG TABLET PO PRN (09:15)
[2017-06-20] MEDS: METHADONE HCL 10 MG TABLET PO SCH (10:55)
[2017-06-20] MEDS ORDERED: METHADONE HCL 10 MG TABLET PO ONE (11:00)
[2017-06-20 12:08] VITALS: BP_SYST 142
[2017-06-20] MEDS: LEVOFLOXACIN 250 MG/D5W 50 ML IV SCH (13:25)
[2017-06-20 17:01] VITALS: BP_SYST 144
[2017-06-21] MEDS ORDERED: ZOLPIDEM TARTRATE 5 MG TABLET PO PRN (00:15)
[2017-06-21 00:41] VITALS: BP_SYST 163
[2017-06-21] MEDS: ENALAPRILAT DIHYDRATE 1.25 MG/ML VIAL IVP PRN (00:50)
[2017-06-21] MEDS: D5/0.45 NS 1,000 ML IV SCH ×2 (02:29→11:34)
[2017-06-21 04:08] VITALS: BP_SYST 144
[2017-06-21 07:08] LABS: CALCIUM 8.8 mg/dL (8.4-11.0); CREATININE 1.3 mg/dL (0.55-1.30); POTASSIUM 3.6 mmol/L (3.5-5.1)
[2017-06-21] MEDS: ALBUTEROL SULFATE 0.083% 2.5 MG/3 ML VIAL.NEB INH SCH ×2 (07:43→15:00)
[2017-06-21 08:38] VITALS: BP_SYST 146
[2017-06-21] MEDS: METHADONE HCL 10 MG TABLET PO SCH (08:41)
[2017-06-21] MEDS: PANTOPRAZOLE SODIUM 40 MG/VIAL (PROTONIX) IVP SCH (09:02)
[2017-06-21 12:33] VITALS: BP_SYST 133
[2017-06-21] MEDS: LEVOFLOXACIN 250 MG/D5W 50 ML IV SCH (12:37)
[2017-06-21] MEDS ORDERED: FLUCONAZOLE 100 MG TABLET (DIFLUCAN) PO ONE (17:45)
[2017-06-21] MEDS ORDERED: NYSTATIN 500,000 UNITS/5 ML UDC PO SCH ×2 (17:45→18:00)
[2017-06-21 18:05] VITALS: BP_SYST 127
[2017-06-21 18:07] VITALS: BP_SYST 138
[2017-06-21] MEDS ORDERED: DIF100 (18:13)
[2017-06-21] MEDS ORDERED: NYSSUS PO (18:14)
== END 2017-06-21 18:30 | disposition home or self-care (01) | DRG 388 ==
LOC: SED 19:22 → STU 23:14
PROVIDERS: ADMIT Internal Medicine; ATTEND Internal Medicine
DX: K56.60 Unspecified intestinal obstruction (principal); N17.0 Acute kidney failure with tubular necrosis; N13.30 Unspecified hydronephrosis; F11.20 Opioid dependence, uncomplicated; Z90.6 Acquired absence of other parts of urinary tract; N39.0 Urinary tract infection, site not specified; K56.7 Ileus, unspecified; J44.9 Chronic obstructive pulmonary disease, unspecified; G89.4 Chronic pain syndrome; R73.9 Hyperglycemia, unspecified; I10 Essential (primary) hypertension; M48.00 Spinal stenosis, site unspecified; Z85.51 Personal history of malignant neoplasm of bladder; Z90.79 Acquired absence of other genital organ(s); Z86.19 Personal history of other infectious and parasitic diseases; Z88.8 Allergy status to other drugs, medicaments and biological substances
CPT/HCPCS: 36415; 71010; 74000-TC; 74250-TC; 76770; 80048; 80053; 81000-TC; 82962; 83605; 83690-TC; 83735-TC; 84484; 85025; 85610-TC; 85730-TC; 87040-TC; 87081; 87086; 93005; 96365; 96367; 96368; 96375; 96376; 99285; C9113; J0744; J1170; J1815; J1956; J2270; J2405; J2765; J3490; J7030; Q0162; Q9963

== ENCOUNTER 2017-08-06 22:55 | Inpatient (IN) | payer OTHER ==
[~2017-08-06] VITALS: Ht 172.7 cm; Wt 71.2 kg
[~2017-08-06 22:55] MED LIST changes: +DIF100; +NYSSUS PO
[2017-08-06 23:05] VITALS: BP_SYST 121
[2017-08-06] MEDS ORDERED: NACL 0.9% 1,000 ML IV ONE (23:52)
[2017-08-07] VITALS (19 sets, daily range): BP systolic 81–129
[2017-08-07] MEDS ORDERED: MORPHINE 4 MG/ML INJ. SYRINGE IVP ONE
[2017-08-07] MEDS ORDERED: ONDANSETRON HCL 4 MG/2 ML VIAL IVP ONE ×2 (01:00→03:15)
[2017-08-07] MEDS ORDERED: HYDROmorphone 2 MG/ML VIAL IVP ONE (01:00)
[2017-08-07 01:01] LABS: INR 1.1 (0.80-1.20); PROTHROMBIN TIME 10.8 SECS (9.5-12.5)
[2017-08-07 01:04] LABS: CALCIUM 9.4 mg/dL (8.4-11.0); CREATININE 2.09 mg/dL (0.55-1.30); POTASSIUM 3.5 mmol/L (3.5-5.1)
[2017-08-07 01:06] LABS: BASOPHILS # (AUTO) 0.1 K/uL (0.0-0.2); BASOPHILS % (AUTO) 1.4 % (0.0-2.0); EOSINOPHILS % (AUTO) 0.3 % (0.0-4.0); HEMATOCRIT 43.7 % (36-54); HEMOGLOBIN 14.2 g/dL (14.0-18.0); LYMPHOCYTES # (AUTO) 0.8 K/uL (1.0-5.5); LYMPHOCYTES % (AUTO) 13.1 % (20.5-51.5); MEAN CORPUSCULAR HEMOGLOBIN 31 pg (27-31); MEAN CORPUSCULAR HGB CONC 33 % (32-36); MEAN CORPUSCULAR VOLUME 95 fL (79.0-98.0); MONOCYTES # (AUTO) 0.3 K/uL (0.0-1.0); MONOCYTES % (AUTO) 4.7 % (1.7-9.3); NEUTROPHILS # (AUTO) 4.8 K/uL (1.8-7.7); NEUTROPHILS % (AUTO) 80.5 % (40.0-70.0); PLATELET COUNT (AUTO) 339 K/uL (130-430); RED BLOOD CELL COUNT(AUTO) 4.61 MIL/uL (4.2-6.2); RED CELL DISTRIBUTION WIDTH 15.4 % (9.0-15.0)
[2017-08-07 01:08] LABS: ALBUMIN 4.3 g/dL (3.4-4.8); TOTAL BILIRUBIN 0.3 mg/dL (0.0-1.0)
[2017-08-07] MEDS ORDERED: METOCLOPRAMIDE HCL 10 MG/2 ML VIAL IVP ONE (03:30)
[2017-08-07] MEDS ORDERED: NACL 0.9% 1,000 ML IV ONE (03:30)
[2017-08-07 04:08] LABS: BILIRUBIN,URINE NEGATIVE (NEGATIVE); CLARITY/URINE SL CLOUDY (CLEAR); COLOR,URINE YELLOW (YELLOW); GLUCOSE,URINE NEGATIVE (NEGATIVE); KETONES,URINE NEGATIVE (NEGATIVE); LEUKOCYTE ESTERASE ,URINE 2+ (NEGATIVE); NITRITE, URINE NEGATIVE (NEGATIVE); PROTEIN URINE TRACE (NEGATIVE); UROBILINOGEN,URINE 0.2 (0.2-1.0)
[2017-08-07 04:09] LABS: BLOOD, URINE TRACE (NEGATIVE)
[2017-08-07 04:14] LABS: BACTERIA,URINE MODERATE /HPF (None Seen); RBC,URINE 0-3 /HPF (0-3)
[2017-08-07] MEDS ORDERED: MORPHINE 4 MG/ML INJ. SYRINGE IVP PRN (04:15)
[2017-08-07] MEDS ORDERED: ACETAMINOPHEN 325 MG TABLET PO PRN (04:15)
[2017-08-07] MEDS ORDERED: CEFEPIME 1 GM in D5W 50 ML IV ONE (04:15)
[2017-08-07] MEDS ORDERED: HYDROmorphone 1 MG INJ. 1 MG/ML AMPUL IVP PRN ×2 (04:15→16:15)
[2017-08-07] MEDS ORDERED: LR 1,000 ML IV SCH (04:15)
[2017-08-07] MEDS ORDERED: ONDANSETRON HCL 4 MG/2 ML VIAL IVP PRN (04:15)
[2017-08-07] MEDS ORDERED: CEFEPIME 1 GM/VIAL (MAXIPIME) ONE (06:13)
[2017-08-07] MEDS ORDERED: IPRATROPIUM/ALBUTEROL SULFATE 3 ML AMPUL.NEB INH PRN (11:15)
[2017-08-07] MEDS ORDERED: SUCCINYLCHOLINE CHLORIDE 20 MG/ML(QUELICIN) IVP ONE (11:18)
[2017-08-07] MEDS ORDERED: BISACODYL 10 MG/SUPPOSITORY RC PRN (11:45)
[2017-08-07] MEDS ORDERED: LACTULOSE 20 GM/30 ML UDC PO ONE (11:45)
[2017-08-07] MEDS ORDERED: BISACODYL 10 MG/SUPPOSITORY RC ONE (11:45)
[2017-08-07] MEDS ORDERED: MINERAL OIL 133 ML ENEMA RC ONE (11:45)
[2017-08-07] MEDS ORDERED: methylPREDNISolone SOD SUCC/PF 62.5 MG/ML VIAL IVP ONE (12:00)
[2017-08-07] MEDS: SODIUM BICARBONATE 8.4% JECT 100 MEQ in D5W 1,000 ML IV SCH ×2 (12:56→18:23)
[2017-08-07] MEDS ORDERED: MIDAZOLAM HCL 2 MG/2 ML VIAL (VERSED) ONE (13:19)
[2017-08-07] MEDS ORDERED: NS 1000 ML BAG IV ONE (13:45)
[2017-08-07] MEDS ORDERED: NOREPINEPHRINE BITARTRATE 4 MG in D5W 250 ML IV PRN (13:45)
[2017-08-07] MEDS ORDERED: PROPOFOL DRIP 100 ML IV PRN (13:45)
[2017-08-07] MEDS ORDERED: PIPERACILLIN/TAZO 3.375/DEX-IS 50 ML IV ONE (13:45)
[2017-08-07] MEDS ORDERED: PROPOFOL DRIP 100 ML IV ONE (13:54)
[2017-08-07] MEDS ORDERED: methylPREDNISolone SOD SUCC/PF 62.5 MG/ML VIAL IVP SCH (14:00)
[2017-08-07] MEDS ORDERED: SODIUM BICARBONATE 8.4% VIAL 50 MEQ/50 ML VIAL INJ ONE (14:30)
[2017-08-07] MEDS ORDERED: VANCOMYCIN HCL 1 GM/NS PREMIX 250 ML IV ONE (14:45)
[2017-08-07] MEDS ORDERED: SODIUM BICARBONATE 8.4% JECT 50 MEQ/50 ML SYRINGE IV ONE (15:00)
[2017-08-07] MEDS ORDERED: IPRATROPIUM BROM 0.5 MG/2.5 ML VIAL.NEB (ATROVENT) INH PRN (16:00)
[2017-08-07] MEDS ORDERED: ALBUTEROL SULFATE 0.083% 2.5 MG/3 ML VIAL.NEB INH PRN (16:00)
[2017-08-07] MEDS ORDERED: LORazepam 2 MG/ML VIAL IVP PRN (16:15)
[2017-08-07] MEDS: metroNIDAZOLE 500 mg/NS 100 ML IV SCH ×2 (16:45→22:38)
[2017-08-07] MEDS ORDERED: GASTROGRAFIN 120 ML ONE (18:45)
[2017-08-07] MEDS: PIPERACILLIN/TAZO 2.25G/DEX-IS 50 ML IV SCH (18:48)
[2017-08-07] MEDS: ALBUTEROL SULFATE 0.083% 2.5 MG/3 ML VIAL.NEB INH SCH (19:25)
[2017-08-07] MEDS: IPRATROPIUM BROM 0.5 MG/2.5 ML VIAL.NEB (ATROVENT) INH SCH (19:26)
[2017-08-07] MEDS ORDERED: CEFEPIME 1 GM in D5W 50 ML IV SCH (21:00)
[2017-08-07] MEDS: FAMOTIDINE PF 20 MG/2 ML VIAL IVP SCH (21:43)
[2017-08-07] MEDS: methylPREDNISolone SOD SUCC 40 MG/ML VIAL IVP SCH (21:45)
[2017-08-07] MEDS ORDERED: SODIUM BICARBONATE 8.4% JECT 50 MEQ/50 ML SYRINGE IVP ONE (22:15)
[2017-08-07] MEDS: PROPOFOL DRIP 100 ML IV PRN (22:42)
[2017-08-07] MEDS: NOREPINEPHRINE BITARTRATE 4 MG in D5W 246 ML IV PRN (23:16)
[2017-08-08] VITALS (30 sets, daily range): BP systolic 72–161
[2017-08-08] MEDS: PIPERACILLIN/TAZO 2.25G/DEX-IS 50 ML IV SCH ×4 (00:34→17:01)
[2017-08-08] MEDS: ALBUTEROL SULFATE 0.083% 2.5 MG/3 ML VIAL.NEB INH SCH ×4 (01:37→20:09)
[2017-08-08] MEDS: IPRATROPIUM BROM 0.5 MG/2.5 ML VIAL.NEB (ATROVENT) INH SCH ×4 (01:37→20:09)
[2017-08-08] MEDS: metroNIDAZOLE 500 mg/NS 100 ML IV SCH ×3 (05:58→21:43)
[2017-08-08] MEDS: methylPREDNISolone SOD SUCC 40 MG/ML VIAL IVP SCH ×3 (05:58→21:43)
[2017-08-08] MEDS: PROPOFOL DRIP 100 ML IV PRN ×2 (06:20→16:21)
[2017-08-08 06:54] LABS: ALBUMIN 2.3 g/dL (3.4-4.8); CREATININE 3.1 mg/dL (0.55-1.30); PHOSPHORUS 5.6 mg/dL (2.7-4.5); POTASSIUM 3.6 mmol/L (3.5-5.1); TOTAL BILIRUBIN 0.3 mg/dL (0.0-1.0)
[2017-08-08 07:03] LABS: HEMATOCRIT 33.4 % (36-54); MEAN CORPUSCULAR HEMOGLOBIN 31 pg (27-31); MEAN CORPUSCULAR HGB CONC 33 % (32-36); MEAN CORPUSCULAR VOLUME 95 fL (79.0-98.0); PLATELET COUNT (AUTO) 169 K/uL (130-430); RED BLOOD CELL COUNT(AUTO) 3.52 MIL/uL (4.2-6.2); RED CELL DISTRIBUTION WIDTH 15.2 % (9.0-15.0)
[2017-08-08 07:10] LABS: CALCIUM 7.3 mg/dL (8.4-11.0)
[2017-08-08] MEDS ORDERED: SODIUM BICARBONATE 8.4% JECT 50 MEQ/50 ML SYRINGE ONE (07:36)
[2017-08-08] MEDS ORDERED: NS 500 ML IV ONE ×2 (07:36→14:45)
[2017-08-08] MEDS ORDERED: SODIUM BICARBONATE 8.4% JECT 50 MEQ/50 ML SYRINGE IVP ONE (07:45)
[2017-08-08] MEDS: FAMOTIDINE PF 20 MG/2 ML VIAL IVP SCH ×2 (08:02→21:43)
[2017-08-08] MEDS: LACTULOSE 20 GM/30 ML UDC PO SCH (08:04)
[2017-08-08] MEDS: NOREPINEPHRINE BITARTRATE 4 MG in D5W 246 ML IV PRN (08:05)
[2017-08-08] MEDS ORDERED: COMMUNICATION ORDER XX ONE (08:15)
[2017-08-08] MEDS ORDERED: NOREPINEPHRINE BITARTRATE 16 MG in D5W 234 ML IV PRN (08:30)
[2017-08-08 08:36] LABS: WHITE BLOOD COUNT (AUTO) 1.5 K/uL (4.8-10.8)
[2017-08-08] MEDS ORDERED: NACL 0.9% 2,000 ML IV ONE (09:15)
[2017-08-08] MEDS ORDERED: DOPamine PREMIX 250 ML IV ONE (09:35)
[2017-08-08 09:42] LABS: BAND % (MANUAL) 52 % (0-6)
[2017-08-08 09:43] LABS: BASOPHILS % (MANUAL) 0 % (0-2); EOSINOPHILS % (MANUAL) 4 % (0-7); LYMPHOCYTES % (MANUAL) 10 % (20-46); METAMYELOCYTES % 8 % (0-0); MONOCYTES % (MANUAL) 8 % (0-11)
[2017-08-08 10:14] LABS: PROTHROMBIN TIME 20.7 SECS (9.5-12.5)
[2017-08-08] MEDS: SODIUM BICARBONATE 8.4% JECT 100 MEQ in D5W 1,000 ML IV SCH ×3 (10:41→21:19)
[2017-08-08] MEDS: NOREPINEPHRINE BITARTRATE 8 MG in D5W 242 ML IV PRN ×3 (13:09→21:22)
[2017-08-08] MEDS ORDERED: MORPHINE 4 MG/ML INJ. SYRINGE IVP PRN (15:15)
[2017-08-08] MEDS ORDERED: *TPN PER PHARMACY XX PRN (15:15)
[2017-08-08] MEDS ORDERED: DEXTROSE 50% JECT 50 ML DISP.SYRIN IVP PRN (15:15)
[2017-08-08] MEDS: INSULIN REGULAR, HUMAN 100 UNITS/ML, 10 ML VIAL (novoLIN R) SUBCUT PRN (18:05)
[2017-08-08] MEDS ORDERED: PHYTONADIONE 10 MG in NS 50 ML IV ONE (18:30)
[2017-08-08] MEDS ORDERED: PHYTONADIONE 10 MG/ML AMP ONE (18:58)
[2017-08-08] MEDS: ANTIFUNGAL CLEAR OINTMENT TP SCH ×2 (21:00→21:50)
[2017-08-08] MEDS ORDERED: NOREPINEPHRINE 4 MG/4 ML VIAL IV ONE (21:55)
[2017-08-08] MEDS: FILGRASTIM 480 MCG/VIAL SUBCUT SCH (22:30)
[2017-08-08] MEDS ORDERED: FILGRASTIM 300 MCG/ML VIAL SUBCUT ONE (23:00)
[2017-08-08] MEDS ORDERED: FILGRASTIM 300 MCG/ML VIAL ONE (23:57)
[2017-08-09] VITALS (32 sets, daily range): BP systolic 98–132
[2017-08-09] MEDS: PROPOFOL DRIP 100 ML IV PRN ×3 (00:03→19:11)
[2017-08-09] MEDS: ALBUTEROL SULFATE 0.083% 2.5 MG/3 ML VIAL.NEB INH SCH ×4 (00:10→19:49)
[2017-08-09] MEDS: IPRATROPIUM BROM 0.5 MG/2.5 ML VIAL.NEB (ATROVENT) INH SCH ×4 (00:11→19:49)
[2017-08-09] MEDS: INSULIN REGULAR, HUMAN 100 UNITS/ML, 10 ML VIAL (novoLIN R) SUBCUT PRN ×2 (00:17→12:20)
[2017-08-09] MEDS: PIPERACILLIN/TAZO 2.25G/DEX-IS 50 ML IV SCH ×5 (00:24→23:40)
[2017-08-09] MEDS: NOREPINEPHRINE BITARTRATE 8 MG in D5W 242 ML IV PRN ×6 (00:28→21:34)
[2017-08-09] MEDS: SODIUM BICARBONATE 8.4% JECT 100 MEQ in D5W 1,000 ML IV SCH ×2 (02:32→08:39)
[2017-08-09] MEDS: DOPamine PREMIX 250 ML IV PRN ×2 (03:33→21:32)
[2017-08-09] MEDS: metroNIDAZOLE 500 mg/NS 100 ML IV SCH ×3 (05:25→21:07)
[2017-08-09] MEDS: methylPREDNISolone SOD SUCC 40 MG/ML VIAL IVP SCH ×3 (05:25→21:06)
[2017-08-09 05:42] LABS: BASOPHILS % (AUTO) 0.2 % (0.0-2.0); EOSINOPHILS % (AUTO) 0.6 % (0.0-4.0); HEMATOCRIT 33.6 % (36-54); LYMPHOCYTES # (AUTO) 0.1 K/uL (1.0-5.5); LYMPHOCYTES % (AUTO) 3.7 % (20.5-51.5); MEAN CORPUSCULAR HEMOGLOBIN 31 pg (27-31); MEAN CORPUSCULAR HGB CONC 33 % (32-36); MEAN CORPUSCULAR VOLUME 95 fL (79.0-98.0); MONOCYTES # (AUTO) 0.1 K/uL (0.0-1.0); MONOCYTES % (AUTO) 2.4 % (1.7-9.3); NEUTROPHILS # (AUTO) 2.6 K/uL (1.8-7.7); PLATELET COUNT (AUTO) 64 K/uL (130-430); RED BLOOD CELL COUNT(AUTO) 3.54 MIL/uL (4.2-6.2); RED CELL DISTRIBUTION WIDTH 15.5 % (9.0-15.0); WHITE BLOOD COUNT (AUTO) 2.8 K/uL (4.8-10.8)
[2017-08-09 06:33] LABS: ANION GAP 12 (5-15); CHLORIDE 96 mmol/L (98-107); GLUCOSE 184 mg/dL (70-99); POTASSIUM 3.6 mmol/L (3.5-5.1); SODIUM SERUM 133 mmol/L (136-145)
[2017-08-09 06:34] LABS: ALANINE AMINOTRANSFERASE 53 U/L (12-78); ALBUMIN 1.9 g/dL (3.4-4.8); ASPARTATE AMINOTRANSFERASE 282 U/L (10-37); CREATININE 2.44 mg/dL (0.55-1.30); GFR AFRICAN AMERICAN 34 mL/min (>90); TOTAL BILIRUBIN 0.4 mg/dL (0.0-1.0); UREA NITROGEN, BLOOD 56 mg/dL (8-21)
[2017-08-09 06:43] LABS: PHOSPHORUS 5.7 mg/dL (2.7-4.5)
[2017-08-09 06:44] LABS: CHOLESTEROL 52 mg/dL (<200); HDL CHOLESTEROL 7 mg/dL (>45); LIPASE 57 U/L (73-393); TRIGLYCERIDES 137 mg/dL (30-150)
[2017-08-09 06:56] LABS: LDL CHOLESTEROL < 6 mg/dL (<100)
[2017-08-09 07:09] LABS: CALCIUM 5.1 mg/dL (8.4-11.0)
[2017-08-09] MEDS ORDERED: CALCIUM CHLORIDE IV ONE (07:30)
[2017-08-09] MEDS ORDERED: NS IV ONE (07:30)
[2017-08-09 08:58] LABS: INR 2.1 (0.80-1.20); PROTHROMBIN TIME 21.5 SECS (9.5-12.5)
[2017-08-09] MEDS ORDERED: NACL 0.9% 1,000 ML IV SCH (09:00)
[2017-08-09] MEDS: ANTIFUNGAL CLEAR OINTMENT TP SCH ×4 (09:00→21:10)
[2017-08-09] MEDS: FAMOTIDINE PF 20 MG/2 ML VIAL IVP SCH ×2 (09:58→20:41)
[2017-08-09] MEDS: LACTULOSE 20 GM/30 ML UDC PO SCH (09:58)
[2017-08-09 12:00] LABS: NEUTROPHILS % (AUTO) 93.1 % (40.0-70.0)
[2017-08-09] MEDS ORDERED: FUROSEMIDE 20 MG/2 ML VIAL IVP ONE ×2 (16:30→19:15)
[2017-08-09] MEDS: FILGRASTIM 480 MCG/VIAL SUBCUT SCH (16:49)
[2017-08-09] MEDS ORDERED: FAT EMULSIONS 250 ML IV SCH (18:00)
[2017-08-09] MEDS ORDERED: TPN CENTRAL 0.0001 ML, SODIUM CHLORIDE 40 MEQ, POTASSIUM CHLORIDE 20 MEQ, K PHOS 9 MM, ... IV SCH ×10 (18:00)
[2017-08-09] MEDS ORDERED: DIGOXIN 0.5 MG/2 ML AMP IVP ONE (23:00)
[2017-08-09] MEDS ORDERED: DIGOXIN 0.5 MG/2 ML AMP ONE (23:39)
[2017-08-10] VITALS (7 sets, daily range): BP systolic 73–123
[2017-08-10] MEDS: NOREPINEPHRINE BITARTRATE 8 MG in D5W 242 ML IV PRN (01:16)
[2017-08-10] MEDS: ALBUTEROL SULFATE 0.083% 2.5 MG/3 ML VIAL.NEB INH SCH (01:35)
[2017-08-10] MEDS: IPRATROPIUM BROM 0.5 MG/2.5 ML VIAL.NEB (ATROVENT) INH SCH (01:35)
[2017-08-10] MEDS ORDERED: PHENYLEPHRINE HCL 30 MG in NS 247 ML IV PRN (05:30)
[2017-08-10] MEDS ORDERED: SODIUM BICARBONATE 8.4% JECT 50 MEQ/50 ML SYRINGE IVP ONE (05:42)
[2017-08-10] MEDS ORDERED: EPINEPHrine JECT 1 MG/10 ML SYR IVP ONE (05:42)
== END 2017-08-10 05:43 | disposition expired | DRG 871 ==
LOC: SED 22:55 → SMU 08-07 04:09 → STU 08-07 12:41 → SIC 08-07 13:28
PROVIDERS: ADMIT Internal Medicine; ATTEND Internal Medicine
PROC: 5A1945Z Respiratory Ventilation, 24-96 Consecutive Hours (ICD-10-PCS; principal; 2017-08-07)
PROC: 0BH17EZ Insertion of Endotracheal Airway into Trachea, Via Natural or Artificial Opening (ICD-10-PCS; 2017-08-07)
PROC: 02HV33Z Insertion of Infusion Device into Superior Vena Cava, Percutaneous Approach (ICD-10-PCS; 2017-08-08)
PROC: B548ZZA Ultrasonography of Superior Vena Cava, Guidance (ICD-10-PCS; 2017-08-08)
DX: A41.9 Sepsis, unspecified organism (principal); N17.0 Acute kidney failure with tubular necrosis; D65 Disseminated intravascular coagulation [defibrination syndrome]; I21.9 Acute myocardial infarction, unspecified; J69.0 Pneumonitis due to inhalation of food and vomit; G93.41 Metabolic encephalopathy; J96.01 Acute respiratory failure with hypoxia; J15.6 Pneumonia due to other Gram-negative bacteria; K56.609 Unspecified intestinal obstruction, unspecified as to partial versus complete obstruction; R65.21 Severe sepsis with septic shock; F11.20 Opioid dependence, uncomplicated; D68.4 Acquired coagulation factor deficiency; N39.0 Urinary tract infection, site not specified; E87.2 Acidosis; I13.0 Hypertensive heart and chronic kidney disease with heart failure and stage 1 through stage 4 chronic kidney disease, or unspecified chronic kidney disease; E11.22 Type 2 diabetes mellitus with diabetic chronic kidney disease; F10.10 Alcohol abuse, uncomplicated; F17.210 Nicotine dependence, cigarettes, uncomplicated; G89.4 Chronic pain syndrome; I70.0 Atherosclerosis of aorta; J44.9 Chronic obstructive pulmonary disease, unspecified; B96.20 Unspecified Escherichia coli [E. coli] as the cause of diseases classified elsewhere; Z16.12 Extended spectrum beta lactamase (ESBL) resistance; B96.1 Klebsiella pneumoniae [K. pneumoniae] as the cause of diseases classified elsewhere; I50.9 Heart failure, unspecified; D64.9 Anemia, unspecified; E56.1 Deficiency of vitamin K; E11.65 Type 2 diabetes mellitus with hyperglycemia; M48.00 Spinal stenosis, site unspecified; E86.1 Hypovolemia; K21.9 Gastro-esophageal reflux disease without esophagitis; F03.90 Unspecified dementia, unspecified severity, without behavioral disturbance, psychotic disturbance, mood disturbance, and anxiety; N18.9 Chronic kidney disease, unspecified; Z87.440 Personal history of urinary (tract) infections; Z90.6 Acquired absence of other parts of urinary tract; Z85.51 Personal history of malignant neoplasm of bladder; Z88.8 Allergy status to other drugs, medicaments and biological substances; Z79.899 Other long term (current) drug therapy; Z86.73 Personal history of transient ischemic attack (TIA), and cerebral infarction without residual deficits; Z95.0 Presence of cardiac pacemaker; Z90.49 Acquired absence of other specified parts of digestive tract; Z90.89 Acquired absence of other organs; Z93.6 Other artificial openings of urinary tract status; Z86.19 Personal history of other infectious and parasitic diseases
CPT/HCPCS: 36415; 36600; 71010; 74000-TC; 74250-TC; 80053; 80061; 81000-TC; 82009-TC; 82150-TC; 82803-TC; 82962; 83605; 83690-TC; 83735-TC; 83880; 84100-TC; 84484; 85007; 85025; 85027; 85384-TC; 85610-TC; 85730-TC; 87040-TC; 87070-TC; 87081; 87086; 87186-TC; 87205-TC; 92950; 93005; 93306; 94002; 94003; 94640; 96361; 96374; 96375; 96376; 99285; C1751; J0171; J0330; J0610; J0692; J1030; J1160; J1170; J1265; J1442; J1940; J2270; J2370; J2405; J2543; J2704; J2765; J2930; J3370; J3430; J3465; J3475; J3480; J3490; J7030; J7040; J7050; J7060; J7120; J7131; Q9963